=== PATIENT | male | born 1975 | race Two or more races ===

== ENCOUNTER 2018-01-02 00:12 | Inpatient (IN) | payer SELFPAY ==
[2018-01-02 01:05] LABS: ADD MAN DIFF? NO
[2018-01-02 01:10] LABS: BASO # 0.1 x10^3/uL (0.0-0.2); BASO % 1 % (0-3); EOS # 0.1 x10^3/uL (0.0-0.7); EOS % 1 % (0-3); HEMATOCRIT 41.4 % (39.0-53.0); HEMOGLOBIN 14.1 g/dL (13.0-17.5); LYMPH # 1.3 x10^3/uL (1.0-4.8); LYMPH % 15 % (24-48); MEAN CORPUSCULAR HEMOGLOBIN 32 pg (25-35); MEAN CORPUSCULAR HGB CONC 34 g/dL (31-37); MEAN CORPUSCULAR VOLUME 92 fL (79-100); MONO # 0.8 x10^3/uL (0.0-1.1); MONO % 9 % (0-9); NEUT # 6.4 x10^3uL (1.8-7.7); NEUT % 74 % (31-73); PLATELET COUNT 226 x10^3/uL (140-400); RED BLOOD COUNT 4.49 x10^6/uL (4.30-5.70); RED CELL DISTRIBUTION WIDTH 13.6 % (11.5-14.5); WHITE BLOOD COUNT 8.7 x10^3/uL (4.0-11.0)
[2018-01-02 01:16] LABS: ANION GAP 11 (6-14); BLOOD UREA NITROGEN 17 mg/dL (8-26); CALCIUM 8.7 mg/dL (8.5-10.1); CARBON DIOXIDE 26 mmol/L (21-32); CHLORIDE 104 mmol/L (98-107); CREATININE 0.9 mg/dL (0.7-1.3); GFR 91.7; GLUCOSE 106 mg/dL (70-99); POTASSIUM 4.2 mmol/L (3.5-5.1); SODIUM 141 mmol/L (136-145)
[2018-01-02 01:20] LABS: C-REACTIVE PROTEIN 12.9 mg/L (0-3.3)
[2018-01-02 01:25] LABS: LACTIC ACID 1.8 mmol/L (0.4-2.0)
[2018-01-02] MEDS: IV NORMAL SALINE 1000ML BAG 1,000 ML IV (01:44)
[2018-01-02] MEDS: VANCOMYCIN 1GM IVPB FOR OMNI 250 ML IV (01:45)
[2018-01-02] MEDS ORDERED: ONDANSETRON PF 4 MG/2 ML VIAL. IV (01:45)
[2018-01-02] MEDS ORDERED: ACETAMINOPHEN 325 MG TABLET. PO (01:45)
[2018-01-02] MEDS ORDERED: MORPHINE SULFATE 4 MG/ML DISP.SYRIN. IV (01:45)
[2018-01-02] MEDS: TETANUS AND DIPHTHERIA TOX/PF 0.5 ML DISP.SYRIN. VAX IM (01:47)
[2018-01-02 02:12] LABS: SEDIMENTATION RATE 21 (0-15)
[2018-01-02] MEDS: VANCOMYCIN PER PHARMACY MC (09:41)
[2018-01-02] MEDS: VANCOMYCIN 1.5 GM in IV DEXTROSE 5% 500 ML IV (09:54)
[2018-01-02] MEDS: LACTOBACILLUS RHAMNOSUS GG 1 CAPSULE. PO ×2 (11:24→21:26)
[2018-01-02] MEDS: CEFEPIME HCL IV Push 2 GM VIAL. IVP (12:04)
[2018-01-02] MEDS ORDERED: diphenhydrAMINE 50 MG/ML VIAL (12:19)
[2018-01-02] MEDS: diphenhydrAMINE 50 MG/ML VIAL IVP ×2 (12:23→21:27)
[2018-01-02] MEDS ORDERED: CEFEPIME HCL 2 GM in IV DEXTROSE 5% 100 ML IV (14:00)
[2018-01-02] MEDS: LINEZOLID 600 MG TABLET PO (21:26)
[2018-01-02] MEDS: AZTREONAM IV Push 1 GM VIAL. IVP (21:27)
[2018-01-02] MEDS ORDERED: AZTREONAM 1 GM in IV DEXTROSE 5% 50 ML IV (22:00)
[2018-01-03 05:14] LABS: ADD MAN DIFF? NO
[2018-01-03 05:18] LABS: BASO % 1 % (0-3); EOS # 0.3 x10^3/uL (0.0-0.7); EOS % 4 % (0-3); HEMATOCRIT 43.5 % (39.0-53.0); HEMOGLOBIN 14.6 g/dL (13.0-17.5); LYMPH % 26 % (24-48); MEAN CORPUSCULAR HEMOGLOBIN 31 pg (25-35); MEAN CORPUSCULAR HGB CONC 34 g/dL (31-37); MEAN CORPUSCULAR VOLUME 93 fL (79-100); MONO # 0.5 x10^3/uL (0.0-1.1); MONO % 7 % (0-9); NEUT # 4.8 x10^3uL (1.8-7.7); NEUT % 63 % (31-73); PLATELET COUNT 217 x10^3/uL (140-400); RED CELL DISTRIBUTION WIDTH 13.4 % (11.5-14.5); WHITE BLOOD COUNT 7.7 x10^3/uL (4.0-11.0)
[2018-01-03] MEDS: AZTREONAM IV Push 1 GM VIAL. IVP ×3 (05:23→21:17)
[2018-01-03 06:00] LABS: ANION GAP 5 (6-14); BLOOD UREA NITROGEN 17 mg/dL (8-26); CALCIUM 8.8 mg/dL (8.5-10.1); CARBON DIOXIDE 30 mmol/L (21-32); CHLORIDE 104 mmol/L (98-107); CREATININE 1.1 mg/dL (0.7-1.3); GFR 72.7; GLUCOSE 113 mg/dL (70-99); POTASSIUM 4.2 mmol/L (3.5-5.1); SODIUM 139 mmol/L (136-145)
[2018-01-03] MEDS ORDERED: ONDANSETRON PF 4 MG/2 ML VIAL. ×2 (07:02→08:35)
[2018-01-03] MEDS ORDERED: LIDOCAINE 1% PF 5 ML VIAL. (07:02)
[2018-01-03] MEDS ORDERED: PROPOFOL 20 ML IV ×2 (07:02→08:35)
[2018-01-03] MEDS: LACTOBACILLUS RHAMNOSUS GG 1 CAPSULE. PO ×2 (07:54→21:18)
[2018-01-03] MEDS: LINEZOLID 600 MG TABLET PO ×2 (07:55→21:18)
[2018-01-03] MEDS ORDERED: LIDOCAINE 1% PF 2 ML VIAL. ID (08:15)
[2018-01-03] MEDS ORDERED: PROCHLORPERAZINE 10 MG/2 ML VIAL. IV (08:15)
[2018-01-03] MEDS ORDERED: fentaNYL PF VIAL 100 MCG/2 ML VIAL IV (08:15)
[2018-01-03] MEDS ORDERED: ONDANSETRON PF 4 MG/2 ML VIAL. IV (08:15)
[2018-01-03] MEDS ORDERED: MORPHINE SULFATE 4 MG/ML DISP.SYRIN. IV (08:15)
[2018-01-03] MEDS ORDERED: DEXAMETHASONE SOD PHOS 20 MG/5 ML VIAL. (08:35)
[2018-01-03] MEDS ORDERED: fentaNYL PF VIAL 100 MCG/2 ML VIAL (08:35)
[2018-01-03] MEDS ORDERED: SEVOFLURANE 31 TO 60 MINUTES. IH (08:35)
[2018-01-03] MEDS: IV RINGERS,LACTATED 1000ML 1,000 ML IV (09:00)
[2018-01-03] MEDS ORDERED: PHENYLEPHRINE 10 MG/ML VIAL. (09:04)
[2018-01-03] MEDS: NEOMY/BACITR/POLYMYXIN OINT PACKET. TP (09:08)
[2018-01-03] MEDS: fentaNYL PF VIAL 100 MCG/2 ML VIAL IV ×2 (09:46→10:03)
[2018-01-03] MEDS: ENOXAPARIN 40 MG/0.4 ML SYRINGE. SQ (12:22)
[2018-01-04] MEDS: AZTREONAM IV Push 1 GM VIAL. IVP (05:45)
[2018-01-04] MEDS: LINEZOLID 600 MG TABLET PO (09:37)
[2018-01-04] MEDS: LACTOBACILLUS RHAMNOSUS GG 1 CAPSULE. PO ×2 (09:37→20:56)
[2018-01-04] MEDS: oxyCODONE/APAP 5/325 1 TAB TABLET PO (09:39)
[2018-01-04] MEDS: ENOXAPARIN 40 MG/0.4 ML SYRINGE. SQ (11:17)
[2018-01-04] MEDS: AMOXICILLIN/K CLAV 875/125MG TABLET. PO (20:56)
[2018-01-05] MEDS: LACTOBACILLUS RHAMNOSUS GG 1 CAPSULE. PO (08:38)
[2018-01-05] MEDS: AMOXICILLIN/K CLAV 875/125MG TABLET. PO (08:38)
[2018-01-05] MEDS: ENOXAPARIN 40 MG/0.4 ML SYRINGE. SQ (11:00)
== END 2018-01-05 13:10 | disposition home or self-care (01) | DRG 572 ==
LOC: ER 00:12 → 6 SOUTH 01:33
PROC: 0JBP0ZZ Excision of Left Lower Leg Subcutaneous Tissue and Fascia, Open Approach (ICD-10-PCS; principal; 2018-01-03 08:56)
DX: L03.116 Cellulitis of left lower limb (principal); S89.92XA Unspecified injury of left lower leg, initial encounter; L02.416 Cutaneous abscess of left lower limb; W18.39XA Other fall on same level, initial encounter; Y93.89 Activity, other specified; Y92.89 Other specified places as the place of occurrence of the external cause; Y99.8 Other external cause status
CPT/HCPCS: 36415; 76881; 80048; 83605; 85025; 85651; 86140; 87040; 87071; 87075; 87205; 90471; 90714; 96365; 96375; 99285; 99285-25; J0690; J0692; J1100; J1200; J1650; J2405; J2704; J3010; J3370; J3490; J7030; J7120